=== PATIENT | male | born 1960 ===

== ENCOUNTER 2018-04-20 09:24 | Emergency (ER) | payer MEDICAID ==
[2018-04-20 09:35] VITALS: BP 121/63; PULSE 76; RESP 18; TEMP 98.5; O2SAT 100
--- NOTE | 2018-04-20 10:14 | C.PDOC ---
History Of Present Illness 57 year old male presents to the ER with complaints of left medial knee pain. Patient states that this pain started yesterday and denies trauma. Patient does not have any hx pertaining to area of complaint. Time Seen by Provider: 04/20/18 09:46 Chief Complaint (Nursing): Lower Extremity Problem/Injury History Per: Patient History/Exam Limitations: no limitations Onset/Duration Of Symptoms: Days (x1) Current Symptoms Are (Timing): Still Present Past Medical History Reviewed: Historical Data, Nursing Documentation, Vital Signs Vital Signs: Last Vital Signs Temp 98.5 F 04/20/18 09:33 Pulse 76 04/20/18 09:33 Resp 18 04/20/18 09:33 BP 121/63 04/20/18 09:33 Pulse Ox 100 04/20/18 10:14 Family History: States: No Known Family Hx - Social History Hx Alcohol Use: No Hx Substance Use: No - Immunization History Hx Tetanus Toxoid Vaccination: No Hx Influenza Vaccination: No Hx Pneumococcal Vaccination: No Review Of Systems Except As Marked, All Systems Reviewed And Found Negative. Musculoskeletal: Positive for: Other (left medial knee pain) Physical Exam - Physical Exam Appears: Well, Non-toxic, No Acute Distress Skin: Normal Color, Warm, Dry Head: Atraumatic, Normacephalic Extremity: Tenderness (left medial knee; no fusion) Pulses: Left Dorsalis Pedis: Normal, Right Dorsalis Pedis: Normal Neurological/Psych: Oriented x3, Normal Speech, Normal Motor, Normal Sensation, Normal Reflexes Gait: Steady ED Course And Treatment O2 Sat by Pulse Oximetry: 100 (RA) Pulse Ox Interpretation: Normal Medical Decision Making Medical Decision Making: L medial knee tender x 1 day normal films ? medial collateral lig sprain ice/nsaids educated opt f/u PRN Disposition Doctor Will See Patient In The: Office Counseled Patient/Family Regarding: Studies Performed, Diagnosis - Disposition Referrals: Lou Mayorga MD [Staff Provider] - Disposition: HOME/ ROUTINE Disposition Time: 10:14 Condition: GOOD Additional Instructions: b[place]a de hielo 1/2 hora por hora, nada caliente ibuprofeno 400-600 mg cada 6 horas tiffanie necessario Sigue con Dr. Mayorga- referencia a Orthopedico tiffanie necessario Instructions: Knee Sprain (DC) Forms: [employer] (Argentine) Print Language: INDONESIAN - Clinical Impression Clinical Impression: Knee MCL sprain - Scribe Statement The provider has reviewed the documentation as recorded by the Scribe Lopez Do Provider Attestation: All medical record entries made by the Scribe were at my direction and personally dictated by me. I have reviewed the chart and agree that the record accurately reflects my personal performance of the history, physical exam, medical decision making, and the department course for this patient. I have also personally directed, reviewed, and agree with the discharge instructions and disposition.
--- NOTE | 2018-04-20 10:34 | RAD ---
Date of service: 04/20/2018 PROCEDURE: Left Knee Radiographs. HISTORY: Pain. COMPARISON: None. FINDINGS: BONES: Bone alignment and mineralization are normal. There is no acute displaced fracture or bone destruction. JOINTS: Normal. JOINT EFFUSION: There is a small suprapatellar joint effusion. OTHER FINDINGS: None. IMPRESSION: No acute fracture or dislocation. Small suprapatellar joint effusion.
== END 2018-04-20 10:21 | disposition home or self-care (01) ==
LOC: C.ER 09:24
DX: S83.412A Sprain of medial collateral ligament of left knee, initial encounter (principal); X58.XXXA Exposure to other specified factors, initial encounter; Y92.9 Unspecified place or not applicable